=== PATIENT | female | born 1955 | race Caucasian/White ===

== ENCOUNTER 2019-03-23 09:24 | Outpatient (CLI) | payer BC ==
--- NOTE | 2019-03-23 11:25 | BD ---
DEXA BONE DENSITY STUDY: Date: 03/23/19 HISTORY: Postmenopausal. FINDINGS: Lumbar Spine: BMD (g/cm2) L1 0.903 T-Score: -0.8 L2 0.943 T-Score: -0.8 L3 0.960 T-Score: -1.1 L4 0.982 T-Score: -0.7 Total 0.950 T-Score: -0.9 Left Femoral Neck: 0.655 T-Score: -1.7 Total Femur: 0.962 T-Score: _0.2 IMPRESSION: 1. Osteopenia of the left femoral neck and normal bone mineral density of the lumbar spine. 2. The 10 year fracture risk for a major osteoporotic fracture is 9.4% and for a hip fracture is 1.1 %. These fracture probabilities are calculated for an untreated patient. POS: [facility]
== END 2019-03-23 09:25 | disposition home or self-care (01) ==
LOC: BICMAMMO 09:24
PROVIDERS: ATTEND Obstetrics & Gynecology
DX: M85.852 Other specified disorders of bone density and structure, left thigh (principal)
CPT/HCPCS: 77080

== ENCOUNTER 2025-04-13 08:46 | Day surgery (SDC) | payer MEDICARE ==
[2025-04-13] MEDS ORDERED: diphenhydrAMINE 25 MG CAP ONE (08:58)
[2025-04-13] MEDS ORDERED: Acetaminophen 500 MG TAB ONE (08:58)
[2025-04-13] MEDS: Acetaminophen 500 MG TAB PO SCH (08:59)
[2025-04-13] MEDS: diphenhydrAMINE 25 MG CAP PO SCH (08:59)
[2025-04-13 11:58] VITALS: BP 161/73; TEMP 97.9
== END 2025-04-13 13:07 | disposition home or self-care (01) ==
LOC: ONC/OP 08:46
PROVIDERS: ATTEND Internal Medicine Hematology & Oncology
DX: D64.9 Anemia, unspecified (principal); D69.59 Other secondary thrombocytopenia
CPT/HCPCS: 36430; 86850; 86900; 86901; 86920; J1642; P9016